=== PATIENT | female | born 1975 | race Caucasian/White ===

== ENCOUNTER 2023-07-31 05:32 | Emergency (ER) | payer SELFPAY ==
[2023-07-31 05:33] VITALS: BP 176/90; PULSE 67; RESP 15; TEMP 36.9; O2SAT 99
[2023-07-31 05:41] VITALS: BP 176/90; PULSE 68; RESP 20; TEMP 36.9; O2SAT 98
[2023-07-31 07:10] LABS: Basophils Absolute Auto 0.1 K/mm3 (0.0-0.1); Basophils Percent Auto 0.4 % (0.2-1.2); Eosinophils Absolute Auto 0.2 K/mm3 (0-0.3); Eosinophils Percent Auto 1.3 % (0-4.4); Hematocrit 44.9 % (37.0-47.0); Hemoglobin 14.9 g/dL (12.0-15.0); Immature Granulocyte Absolute 0.07 K/mm3 (0.00-0.031); Immature Granulocyte Percent A 0.5 % (0-0.5); Lymphocytes Absolute Auto 2.58 K/mm3 (0.9-3.2); Lymphocytes Percent Auto 16.8 % (18.3-44.2); Mean Corpuscular HGB Conc 33.2 g/dl (32-36); Mean Corpuscular Hemoglobin 30.4 pg (26-34); Mean Corpuscular Volume 91.6 fl (80-100); Mean Platelet Volume 10.7 fl (7.4-10.4); Monocytes Absolute Auto 0.8 K/mm3 (0.1-0.6); Monocytes Percent Auto 4.9 % (2.6-8.5); Neutrophils Absolute Auto 11.7 K/mm3 (1.3-6.7); Neutrophils Percent Auto 76.1 % (45.5-73.1); Platelet Count Result 556 k/mm3 (150-375); Red Cell Distribution Width 12.7 % (11.5-14.5); White Blood Count 15.4 K/mm3 (4.5-10.0)
[2023-07-31 07:16] VITALS: BP 163/94; PULSE 66; RESP 18; O2SAT 97
[2023-07-31 07:20] LABS: Alanine Aminotransferase 12 U/L (6-35); Alkaline Phosphatase 99 U/L (38-126); Anion Gap 6 mmol/L (8-16); Aspartate Amino Transferase 16 U/L (14-36); Bilirubin,Total 0.4 mg/dL (0.2-1.3); Blood Urea Nitrogen 10 mg/dL (7-17); Calcium 9.7 mg/dL (8.4-10.2); Carbon Dioxide 29 mmol/L (22-30); Chloride 101 mmol/L (98-107); Estimated CRCL calculation 102 ml/min; Estimated Glomerular Filt Rate > 60; Glucose 108 mg/dL (65-110); Lipase 35 U/L (23-300); Potassium 3.4 mmol/L (3.4-5.0); Sodium 136 mmol/L (137-145)
[2023-07-31] MEDS: ONDANSETRON INJ 4 MG/2 ML VIAL IV PUSH (07:27)
[2023-07-31] MEDS: SODIUM CHLORIDE 0.9% IV 1,000 ML 999 ML IV CONT (07:27)
[2023-07-31 07:38] LABS: Appearance Urine Cloudy (Clear); Bacteria Urine None Seen /hpf; Bilirubin Urine Negative (Negative); Blood Urine Negative (Negative); Color Urine Yellow (Yellow); Glucose Urine UA Negative (Negative); Ketones Urine Negative (Negative); Leukocyte Esterase Ur Negative LEU/UL (Negative); Nitrate Urine Negative (Negative); Non Pathogenic Casts 0-2; Protein Urine Negative (Negative); RBC Urine 0-2 /hpf (0-2); Specific Grav Ur 1.008 (1.001-1.035); Squamous Epithelial Cell Urine None seen /hpf (Few); Urobilinogen Urine 0.2 mg/dL (<2.0); WBC Urine 0-5 /hpf
[2023-07-31 07:40] LABS: Add Urine Microscopic? YES
--- NOTE | 2023-07-31 08:15 | ED.GENADULT ---
HPI - General Adult General Chief complaint: Nausea/Vomiting/Diarrhea Stated complaint: abd pain, nausea vomiting Time Seen by Provider: 07/31/23 07:00 History of Present Illness HPI narrative: Patient is a 48-year-old female who presents ER with nausea and vomiting. Currently traveling to [place]. Developed symptoms over the last day. Has diffuse abdominal cramping but no focal tenderness. No diarrhea. No known sick contacts. No alleviating factors. Related Data Allergies Allergy/AdvReac Type Severity Reaction Status Date / Time No Known Allergies Allergy Verified 07/31/23 05:43 Review of Systems Review of Systems: All systems reviewed & are unremarkable except as noted in HPI and below Constitutional: Constitutional: Reports no additional constitutional complaints Cardiovascular: Cardiovascular: Reports no additional cardiovascular complaints Respiratory: Respiratory: Reports no additional respiratory complaints Gastrointestinal: Gastrointestinal: Reports abdominal pain, Reports heartburn, Denies diarrhea, Reports nausea and Reports vomiting Genitourinary: Genitourinary: Denies nocturia, Denies dysuria and Denies flank pain PMFSH Past Medical History Medical History (Updated 07/31/23 @ 08:20 by Cruz Armenta MD) Hypertension Restless leg syndrome Surgical History Surgical History (Updated 07/31/23 @ 08:17 by Cruz Armenta MD) No history of previous surgery Exam Narrative: GENERAL: Well-appearing, well-nourished, and in no acute distress. HEAD: Normocephalic, atraumatic. ENT: Mucous membranes moist. CHEST: Clear to auscultation. No respiratory distress. HEART: Regular rate and rhythm. Normal peripheral pulses. ABDOMEN: Soft, nontender, nondistended. EXTREMITIES: Normal range of motion. No edema. SKIN: Warm, dry, no rash. NEURO: Alert and oriented x3. PSYCH: Normal mood and affect. Course Course Emergency Course: Patient hydrated and given antinausea medication. Nonfocal exam. Patient feels improved. Discharge home. Vital Signs Vital signs: Vital Signs Temperature 98.4 F 07/31/23 05:33 Pulse Rate 67 07/31/23 05:33 Respiratory Rate 15 07/31/23 05:33 Blood Pressure 176/90 H 07/31/23 05:33 Pulse Oximetry 99 07/31/23 05:33 Oxygen Delivery Room Air 07/31/23 05:33 Temperature 98.4 F 07/31/23 05:41 Pulse Rate 66 10/21/23 07:16 Respiratory Rate 18 07/31/23 07:16 Blood Pressure 163/94 H 07/31/23 07:16 Pulse Oximetry 97 07/31/23 07:16 Oxygen Delivery Room Air 07/31/23 05:33 Medical Decision Making Vital Signs Vital Signs: Vital Signs Temperature 98.4 F 07/31/23 05:33 Pulse Rate 67 07/31/23 05:33 Respiratory Rate 15 07/31/23 05:33 Blood Pressure 176/90 H 07/31/23 05:33 Pulse Oximetry 99 07/31/23 05:33 Oxygen Delivery Room Air 07/31/23 05:33 Temperature 98.4 F 07/31/23 05:41 Pulse Rate 66 07/31/23 07:16 Respiratory Rate 18 07/31/23 07:16 Blood Pressure 163/94 H 07/31/23 07:16 Pulse Oximetry 97 07/31/23 07:16 Oxygen Delivery Room Air 07/31/23 05:33 Lab Data 07/31/23 07:06 07/31/23 07:06 Labs: Lab Results 07/31/23 07/31/23 Range/Units 07:06 07:24 WBC 15.4 H (4.5-10.0) K/mm3 RBC 4.90 (4.2-5.4) M/mm3 Hgb 14.9 (12.0-15.0) g/dL Hct 44.9 (37.0-47.0) % MCV 91.6 (80-100) fl MCH 30.4 (26-34) pg MCHC 33.2 (32-36) g/dl RDW 12.7 (11.5-14.5) % Plt Count 556 H (150-375) k/mm3 MPV 10.7 H (7.4-10.4) fl Immature Gran % (Auto) 0.5 (0-0.5) % Neut % (Auto) 76.1 H (45.5-73.1) % Lymph % (Auto) 16.8 L (18.3-44.2) % [place] % (Auto) 4.9 (2.6-8.5) % Eos % (Auto) 1.3 (0-4.4) % Baso % (Auto) 0.4 (0.2-1.2) % Lymph # (Auto) 2.58 (0.9-3.2) K/mm3 [place] # (Auto) 0.8 H (0.1-0.6) K/mm3 Eos # (Auto) 0.2 (0-0.3) K/mm3 Baso # (Auto) 0.1 (0.0-0.1) K/mm3 Abs Immat Gran (auto) 0.07 H (0.0
[2023-07-31 08:30] VITALS: BP 140/78; PULSE 67; RESP 16; O2SAT 99
== END 2023-07-31 08:31 | disposition home or self-care (01) ==
LOC: ANHED 08:29
PROVIDERS: Emergency Provider Emergency Medicine
DX: K52.9 Noninfective gastroenteritis and colitis, unspecified (principal); I10 Essential (primary) hypertension; G25.81 Restless legs syndrome
CPT/HCPCS: 36415; 80053; 81001; 81025; 83690; 85025; 96361; 96374; 99284; J2405; J7030